=== PATIENT | male | born 1960 | race Caucasian/White ===

== ENCOUNTER 2017-12-29 21:11 | Emergency (ER) | payer OTHER ==
[~2017-12-29] VITALS: Ht 180.3 cm; Wt 97.1 kg
== END 2017-12-29 22:33 | disposition home or self-care (01) ==
LOC: ER 21:11
DX: S80.811A Abrasion, right lower leg, initial encounter (principal); S80.11XA Contusion of right lower leg, initial encounter; W22.8XXA Striking against or struck by other objects, initial encounter; Y93.89 Activity, other specified; Y92.39 Other specified sports and athletic area as the place of occurrence of the external cause; Y99.8 Other external cause status

== ENCOUNTER 2018-01-02 19:25 | Emergency (ER) | payer OTHER ==
[~2018-01-02] VITALS: Ht 177.8 cm; Wt 97.5 kg
[2018-01-02] MEDS ORDERED: IBUPROFEN600 MG (19:41)
[2018-01-02] MEDS ORDERED: AMOX-CLAV 875-1 EACH (19:42)
== END 2018-01-02 20:46 | disposition home or self-care (01) ==
LOC: ER 19:25
DX: R60.0 Localized edema (principal)

== ENCOUNTER 2018-01-03 10:25 | Emergency (ER) | payer OTHER ==
[~2018-01-03] VITALS: Ht 180.3 cm; Wt 97.5 kg
[~2018-01-03 10:25] MED LIST: AMOX-CLAV 875-1 EACH; IBUPROFEN600 MG
== END 2018-01-03 11:51 | disposition home or self-care (01) ==
LOC: ER 10:25
DX: M54.89 Other dorsalgia (principal)

== ENCOUNTER 2019-10-26 15:14 | Emergency (ER) | payer OTHER ==
[~2019-10-26] VITALS: Ht 177.8 cm; Wt 98.9 kg
[2019-10-26] MEDS ORDERED: ZESTRIL40 M1 PO (15:35)
[2019-10-26] MEDS ORDERED: LEVOTHYROXINE25 MCG PO (15:35)
[2019-10-26] MEDS ORDERED: FENOFIBRATE150 MG PO (15:36)
[2019-10-26] MEDS ORDERED: ATORVASTATIN CA20 MG (15:36)
== END 2019-10-26 18:27 | disposition home or self-care (01) ==
LOC: ER 15:14
DX: K80.20 Calculus of gallbladder without cholecystitis without obstruction (principal); R10.11 Right upper quadrant pain

== ENCOUNTER → 2021-01-30 | Day surgery (SDC) | payer OTHER ==
[~2021-01-30] MED LIST changes: +ATORVASTATIN CA20 MG; +FENOFIBRATE150 MG PO; +LEVOTHYROXINE25 MCG PO; +ZESTRIL40 M1 PO
== END | disposition home or self-care (01) ==
LOC: ADM 01-27 13:30 → AMB-ENDOS 09:23
PROVIDERS: ATTEND Colon & Rectal Surgery
DX: K57.32 Diverticulitis of large intestine without perforation or abscess without bleeding (principal); K64.1 Second degree hemorrhoids; K44.9 Diaphragmatic hernia without obstruction or gangrene; Z20.822 Contact with and (suspected) exposure to COVID-19